=== PATIENT | female | born 1995 | race Caucasian/White ===

== ENCOUNTER 2017-08-26 00:29 | Emergency (ER) | payer OTHER ==
[~2017-08-26] VITALS: Ht 157.5 cm; Wt 64.9 kg
[2017-08-26] MEDS ORDERED: MEDROLPACK PO (04:25)
== END 2017-08-26 04:33 | disposition home or self-care (01) ==
LOC: ER 00:29
DX: L27.0 Generalized skin eruption due to drugs and medicaments taken internally (principal); L50.0 Allergic urticaria; T39.015A Adverse effect of aspirin, initial encounter

== ENCOUNTER 2017-10-07 15:05 | Emergency (ER) | payer OTHER ==
[~2017-10-07] VITALS: Ht 160 cm; Wt 65.8 kg
[~2017-10-07 15:05] MED LIST: MEDROLPACK PO
== END 2017-10-07 18:23 | disposition home or self-care (01) ==
LOC: ER 15:05
DX: J06.9 Acute upper respiratory infection, unspecified (principal)

== ENCOUNTER → 2017-12-24 | Emergency (ER) | payer OTHER ==
[~2017-12-24] VITALS: Ht 160 cm; Wt 64.4 kg
[~2017-12-24] MED LIST changes: +MACROBID 100 M100 MG PO; +PRENATAL + DHA1 EAC1; +PYRIDIUM DS200 MG PO
== END | disposition home or self-care (01) ==
LOC: ER 20:40
DX: O23.41 Unspecified infection of urinary tract in pregnancy, first trimester (principal); Z34.01 Encounter for supervision of normal first pregnancy, first trimester

== ENCOUNTER 2020-08-09 23:40 | Emergency (ER) | payer OTHER ==
[~2020-08-09] VITALS: Ht 160 cm; Wt 74.4 kg
== END 2020-08-10 | disposition home or self-care (01) ==
LOC: ER 23:40
DX: R42 Dizziness and giddiness (principal)